=== PATIENT | female | born 1990 | race Caucasian/White ===

== ENCOUNTER 2022-03-25 11:04 | Outpatient (CLI) | payer OTHER | END 2022-03-25 12:30 | disposition home or self-care (01) | LOC: NST 11:04 | PROVIDERS: ATTEND Obstetrics & Gynecology | DX: Z34.83 Encounter for supervision of other normal pregnancy, third trimester (principal) ==

== ENCOUNTER 2022-03-27 17:23 | Inpatient (IN) | payer OTHER ==
[~2022-03-27] VITALS: Ht 149.9 cm; Wt 72.6 kg
[2022-03-28] MEDS ORDERED: PRENATAL TABLE1 EAC1 PO (08:39)
== END 2022-03-30 13:46 | disposition home or self-care (01) | DRG 807 ==
LOC: LDR 17:23 → OB/GYN 03-28 16:24 → LDR 03-28 17:56 → OB/GYN 03-30 13:46
PROVIDERS: ADMIT Obstetrics & Gynecology; ATTEND Obstetrics & Gynecology
PROC: 10E0XZZ Delivery of Products of Conception, External Approach (ICD-10-PCS; principal; 2022-03-28)
PROC: 0KQM0ZZ Repair Perineum Muscle, Open Approach (ICD-10-PCS; 2022-03-28)
PROC: 0UQG7ZZ Repair Vagina, Via Natural or Artificial Opening (ICD-10-PCS; 2022-03-28)
PROC: 4A1HXCZ Monitoring of Products of Conception, Cardiac Rate, External Approach (ICD-10-PCS; 2022-03-28)
DX: O70.1 Second degree perineal laceration during delivery (principal); Z37.0 Single live birth; Z20.822 Contact with and (suspected) exposure to COVID-19; Z3A.37 37 weeks gestation of pregnancy